=== PATIENT | female | born 1985 | race Caucasian/White ===

== ENCOUNTER → 2021-07-03 | Outpatient (CLI) | payer OTHER | LOC: US 12:03 | PROVIDERS: ATTEND Family Medicine | DX: R10.13 Epigastric pain (principal); E78.1 Pure hyperglyceridemia | CPT/HCPCS: 76700 ==

== ENCOUNTER 2021-08-04 23:49 | Inpatient (IN) | payer OTHER ==
[~2021-08-04] VITALS: Ht 175.3 cm; Wt 68.0 kg
[2021-08-04] MEDS ORDERED: ONDANSETRON HCL INJ 2MG/ML 2ML 2 MG/ML VIAL IV STA (23:57)
[2021-08-04] MEDS ORDERED: SODIUM CHLORIDE 0.9% 1000ML 1,000 ML IV STA (23:57)
[2021-08-04] MEDS ORDERED: FAMOTIDINE 20 MG/2 ML VIAL IV STA (23:57)
[2021-08-05] VITALS (8 sets, daily range): BP systolic 99–106; BP diastolic 62–70
[2021-08-05 00:24] LABS: BASOPHILS % 0.2 % (0.0-1.0); EOSINOPHILS # (AUTO) 0.1 (0.0-0.4); EOSINOPHILS % 0.6 % (0.0-6.0); HEMATOCRIT 37.4 % (34.2-44.1); HEMOGLOBIN 13.2 g/dL (12.0-16.0); LYMPHOCYTES # (AUTO) 1.3 (1.0-3.2); MEAN CORPUSCULAR HEMOGLOBIN 35.2 pg (28-32); MEAN CORPUSCULAR HGB CONC 35.3 g/dL (31-35); MEAN CORPUSCULAR VOLUME 99.7 fL (81-99); MONOCYTES # (AUTO) 0.7 (0.2-0.8); MONOCYTES % 5.2 % (4.4-11.3); NEUTROPHILS # (AUTO) 11.8 (2.1-6.9); NEUTROPHILS % 84.3 % (38.7-80.0); PLATELET COUNT 415 x10e3/uL (140-360); RED BLOOD COUNT 3.75 x10e6/uL (3.6-5.1)
[2021-08-05 00:29] LABS: CLARITY,URINE CLOUDY (CLEAR); COLOR,URINE YELLOW (YELLOW); KETONES,URINE NEGATIVE (NEGATIVE); LEUKOCYTE ESTERASE ,URINE TRACE (NEGATIVE); NITRITE,URINE POSITIVE (NEGATIVE); PROTEIN,URINE DIPSTICK NEGATIVE (NEGATIVE); URINE UROBILINOGEN 0.2 mg/dL (0.2 - 1)
[2021-08-05 00:36] LABS: CREATINE KINASE 44 IU/L (29-168)
[2021-08-05 00:38] LABS: ALBUMIN 4.2 g/dL (3.5-5.0); ANION GAP 16.5 mmol/L (8-16); CALCIUM 9.9 mg/dL (8.4-10.2); CREATININE, SERUM 0.96 mg/dL (0.57-1.11); POTASSIUM 3.5 mmol/L (3.5-5.1)
[2021-08-05 01:01] LABS: WBC,URINE (MAN) >50 /HPF (0-5)
[2021-08-05 01:02] LABS: BACTERIA,URINE MANY /HPF; EPITHELIAL CELLS,URINE MANY /LPF; RENAL EPITHELIAL CELLS,URINE FEW; TRANSITIONAL EPI CELLS,URINE FEW
[2021-08-05] MEDS ORDERED: IOPAMIDOL 370 MG/ML 200 ML INFUS..BTL INJ ONE (01:27)
[2021-08-05] MEDS ORDERED: SODIUM CHLORIDE 0.9% 50ML 50 ML ONE (01:28)
[2021-08-05] MEDS ORDERED: Morphine 4mg Syringe 4 MG/ML INJ IV STA (01:48)
[2021-08-05] MEDS ORDERED: Morphine 4mg Syringe 4 MG/ML INJ ONE (02:13)
[2021-08-05] MEDS: SODIUM CHLORIDE 0.9% 1000ML 1,000 ML IV SCH ×3 (02:15→17:03)
[2021-08-05 02:33] LABS: LIPASE > 1200 U/L (8-78)
[2021-08-05] MEDS: PIPERACILLIN/TAZOBACTAM 3.375 GM in SODIUM CHLORIDE 0.9% 50ML 50 ML IV SCH ×3 (05:56→17:03)
[2021-08-05] MEDS: ONDANSETRON HCL INJ 2MG/ML 2ML 2 MG/ML VIAL IV PRN ×2 (05:56→21:17)
[2021-08-05] MEDS: HYDROMORPHONE 1MG/1ML INJ IV PRN ×5 (05:56→21:17)
[2021-08-05] MEDS ORDERED: LORAZEPAM 1 MG TAB PO PRN (09:00)
[2021-08-05 09:19] LABS: CHOL/HDL RATIO 2.4 (3.0-3.6)
[2021-08-05] MEDS ORDERED: ALPRAZOLAM1 MG PO (09:24)
[2021-08-05] MEDS ORDERED: PROPRANOLOL HCL40 MG PO (09:24)
[2021-08-05] MEDS ORDERED: PANTOPRAZOLE SO40 MG PO (09:24)
[2021-08-05] MEDS ORDERED: OLMESARTAN-HCT1 EACH (09:24)
[2021-08-05] MEDS ORDERED: TRICOR48 MG PO (09:24)
[2021-08-05] MEDS: CHLORDIAZEPOXIDE HCL 25 MG CAP PO SCH ×2 (10:36→21:17)
[2021-08-06] VITALS (8 sets, daily range): BP systolic 96–126; BP diastolic 61–88
[2021-08-06] MEDS: HYDROMORPHONE 1MG/1ML INJ IV PRN ×7 (04:10→23:31)
[2021-08-06 05:03] LABS: BASOPHILS % 0.4 % (0.0-1.0); EOSINOPHILS # (AUTO) 0.1 (0.0-0.4); EOSINOPHILS % 1.2 % (0.0-6.0); LYMPHOCYTES # (AUTO) 1.9 (1.0-3.2); LYMPHOCYTES % 16.6 % (18.0-39.1); MEAN CORPUSCULAR HEMOGLOBIN 35.3 pg (28-32); MEAN CORPUSCULAR HGB CONC 33.5 g/dL (31-35); MEAN CORPUSCULAR VOLUME 105.1 fL (81-99); MONOCYTES # (AUTO) 0.7 (0.2-0.8); MONOCYTES % 5.8 % (4.4-11.3); NEUTROPHILS # (AUTO) 8.6 (2.1-6.9); NEUTROPHILS % 75.4 % (38.7-80.0); PLATELET COUNT 290 x10e3/uL (140-360); RED BLOOD COUNT 2.95 x10e6/uL (3.6-5.1); RED CELL DISTRIBUTION WIDTH 12.3 % (11.7-14.4)
[2021-08-06 05:16] LABS: HEMOGLOBIN 10.4 g/dL (12.0-16.0)
[2021-08-06 05:54] LABS: ALBUMIN 2.8 g/dL (3.5-5.0); ALBUMIN/GLOBULIN RATIO 0.8 (0.8-2.0); ANION GAP 18.1 mmol/L (8-16); CREATININE, SERUM 0.88 mg/dL (0.57-1.11); POTASSIUM 3.1 mmol/L (3.5-5.1)
[2021-08-06] MEDS: SODIUM CHLORIDE 0.9% 1000ML 1,000 ML IV SCH ×3 (06:13→16:19)
[2021-08-06] MEDS: PIPERACILLIN/TAZOBACTAM 3.375 GM in SODIUM CHLORIDE 0.9% 50ML 50 ML IV SCH ×6 (06:13→23:34)
[2021-08-06 06:21] LABS: AMYLASE 343 U/L (25-125); LIPASE 643 U/L (8-78)
[2021-08-06] MEDS: CHLORDIAZEPOXIDE HCL 25 MG CAP PO SCH (07:23)
[2021-08-06] MEDS: FENOFIBRATE 48 MG TAB PO SCH (08:50)
[2021-08-06 08:53] LABS: FERRITIN 444.43 ng/mL (4.63-204.00)
[2021-08-06] MEDS ORDERED: POTASSIUM CHLORIDE 20 MEQ TAB CR PO ONE (09:30)
[2021-08-06 12:12] LABS: OSMOLALITY,SERUM OSMOMETER 267 mOsmol/kg (275-295)
[2021-08-06] MEDS ORDERED: FLUTICASONE PROPIONATE NASAL SPRAY NS PRN (12:30)
[2021-08-06] MEDS ORDERED: LORATADINE 10 MG TAB PO PRN (12:30)
[2021-08-06] MEDS ORDERED: CHLORDIAZEPOXIDE HCL 25 MG CAP PO PRN (13:00)
[2021-08-06] MEDS ORDERED: CYANOCOBALAMIN INJ 1,000 MCG/ML VIAL IM ONE (23:45)
[2021-08-07] VITALS (7 sets, daily range): BP systolic 100–136; BP diastolic 71–77
[2021-08-07] MEDS ORDERED: FOLIC ACID 1 MG TAB PO ONE
[2021-08-07] MEDS: SODIUM CHLORIDE 0.9% 1000ML 1,000 ML IV SCH ×3 (02:18→18:15)
[2021-08-07] MEDS: PIPERACILLIN/TAZOBACTAM 3.375 GM in SODIUM CHLORIDE 0.9% 50ML 50 ML IV SCH ×3 (04:55→17:58)
[2021-08-07] MEDS: HYDROMORPHONE 1MG/1ML INJ IV PRN ×2 (04:59→09:10)
[2021-08-07 05:57] LABS: BASOPHILS # (AUTO) 0.1 (0.0-0.1); BASOPHILS % 0.5 % (0.0-1.0); EOSINOPHILS # (AUTO) 0.3 (0.0-0.4); EOSINOPHILS % 2.7 % (0.0-6.0); HEMATOCRIT 26.9 % (34.2-44.1); LYMPHOCYTES # (AUTO) 2.1 (1.0-3.2); LYMPHOCYTES % 23.3 % (18.0-39.1); MEAN CORPUSCULAR HEMOGLOBIN 34.7 pg (28-32); MEAN CORPUSCULAR HGB CONC 33.5 g/dL (31-35); MEAN CORPUSCULAR VOLUME 103.9 fL (81-99); MONOCYTES # (AUTO) 0.9 (0.2-0.8); MONOCYTES % 9.9 % (4.4-11.3); NEUTROPHILS # (AUTO) 5.8 (2.1-6.9); NEUTROPHILS % 63.1 % (38.7-80.0); PLATELET COUNT 253 x10e3/uL (140-360); RED BLOOD COUNT 2.59 x10e6/uL (3.6-5.1); RED CELL DISTRIBUTION WIDTH 12.3 % (11.7-14.4)
[2021-08-07 06:32] LABS: ALBUMIN 2.6 g/dL (3.5-5.0); ALBUMIN/GLOBULIN RATIO 0.7 (0.8-2.0); ALKALINE PHOSPHATASE 67 IU/L (40-150); AMYLASE 118 U/L (25-125); ANION GAP 15.5 mmol/L (8-16); BLOOD UREA NITROGEN < 5 mg/dL (7-26); CALCIUM 7.8 mg/dL (8.4-10.2); CARBON DIOXIDE 22 mmol/L (22-29); CHLORIDE 101 mmol/L (98-107); CREATININE, SERUM 0.74 mg/dL (0.57-1.11); EST GLOMERULAR FILTRATION RATE 88 ML/MIN (60-); GLUCOSE 82 mg/dL (74-118); LIPASE 181 U/L (8-78); POTASSIUM 3.5 mmol/L (3.5-5.1); SODIUM 135 mmol/L (136-145)
[2021-08-07 06:33] LABS: BUN/CREATININE RATIO 7 (6-25)
[2021-08-07 06:51] LABS: ALANINE AMINOTRANSFERASE < 6 IU/L (0-55)
[2021-08-07] MEDS ORDERED: CHLORDIAZEPOXIDE HCL 25 MG CAP PO SCH (09:00)
[2021-08-07] MEDS ORDERED: CYANOCOBALAMIN INJ 1,000 MCG/ML VIAL IM SCH (09:00)
[2021-08-07] MEDS ORDERED: FOLIC ACID 1 MG TAB PO SCH ×2 (09:00)
[2021-08-07] MEDS ORDERED: THIAMINE HCL 100 MG TAB PO SCH (09:00)
[2021-08-07] MEDS ORDERED: IRON SUCROSE 100 MG in SODIUM CHLORIDE 0.9% 100 ML 100 ML IV SCH (09:00)
[2021-08-07] MEDS: FENOFIBRATE 48 MG TAB PO SCH (09:10)
[2021-08-07] MEDS ORDERED: FERROUS SULFAT325 MG PO (18:59)
[2021-08-07] MEDS ORDERED: B-1100 MG PO (18:59)
[2021-08-07] MEDS ORDERED: CHLORDIAZEPOXID25 MG PO (18:59)
[2021-08-07] MEDS ORDERED: Folic Acid PO (18:59)
[2021-08-08] MEDS ORDERED: PANTOPRAZOLE SOD 40 MG TABEC PO SCH (07:30)
== END 2021-08-07 20:41 | disposition home or self-care (01) | DRG 439 ==
LOC: ER 23:55 → ERHOLD 08-05 02:08 → MED/SURG2 08-05 03:57
DX: K85.20 Alcohol induced acute pancreatitis without necrosis or infection (principal); F10.288 Alcohol dependence with other alcohol-induced disorder; E87.1 Hypo-osmolality and hyponatremia; Y90.0 Blood alcohol level of less than 20 mg/100 ml; F17.200 Nicotine dependence, unspecified, uncomplicated
CPT/HCPCS: 36415; 74177; 76705; 80053; 80061; 80320; 81001; 81025; 82150; 82550; 82553; 82607; 82728; 82746; 83540; 83690; 83930; 83935; 84300; 84466; 84478; 84484; 85025; 87086; 93005; 94799; 99284; J1170; J1756; J2270; J2405; J2543; J3411; J3420; J7030; Q9967; U0002